=== PATIENT | male | born 1995 ===

== ENCOUNTER 2023-02-27 | Emergency (ER) | payer SELFPAY ==
[2023-02-27 00:05] VITALS: BP 153/85; PULSE 109; RESP 19; TEMP 36.9; O2SAT 100; BMI 27.0
[2023-02-27 01:45] VITALS: BP 113/68; PULSE 75; RESP 17; TEMP 37.1; O2SAT 97
--- NOTE | 2023-02-27 02:21 | ED_ITS ---
HPI - Skin/Abscess/Foreign Bdy General Chief complaint: Skin/Abscess/Foreign Body Stated complaint: Rash Time Seen by Provider: 02/27/23 02:16 Source: patient Mode of arrival: ambulatory Limitations: no limitations History of Present Illness HPI narrative: Patient comes to emergency room complaining of a very itchy circular rash in the inner thigh. Patient states that it has been there for couple of days. Patient states that he does not have any pain. However, it is very itchy. Patient does not recall if he got bitten by any insect. Related Data Previous Rx's Medication Instructions Recorded diphenhydramine HCl 2 % topical 1 appl topical QID PRN itching 02/27/23 gel (Benadryl) #103 mL hydrocortisone 2.5 % topical cream 1 appl topical TID PRN itching #30 02/27/23 grams Allergies Allergy/AdvReac Type Severity Reaction Status Date / Time No Known Allergies Allergy Verified 02/27/23 02:21 Review of Systems Review of Systems: Constitutional : No Weight loss, No Fever, No Chills, No Night Sweats, No Fatig ue, No Malaise ENT/Mouth : No Hearing loss, No Ear Pain, No Nasal Congestion, No Sinus Pain, No Hoarseness, No sore throat, No Rhinorrhea, No Swallowing Difficulty Eyes: No Eye Pain, No Swelling, No Redness, No Foreign Body, No Discharge, No Vision Changes Cardiovascular : No Chest Pain, No SOB, No Dyspnea on Exertion, No Orthopnea, No Edema, No Palpitations Respiratory : No Cough, No Sputum, No Wheezing, No Smoke Exposure, No Dyspnea Gastrointestinal : No Nausea, No Vomiting, No Diarrhea, No Constipation, No abdominal Pain, No Hematochezia, No Melena Genitourinary : no irregular bleeding, No Dysuria, No Urinary Frequency, No Hematuria, No Urinary Incontinence, No Urgency, No Flank Pain, No Urinary Flow Changes, No Hesitancy Musculoskeletal : No joint pain, No Myalgias, No Joint Swelling Skin : Very itchy circular rash Neuro : No Weakness, No Numbness, No Paresthesias, No Loss of Consciousness, No Dizziness, No Headache Psych : No Anxiety/Panic, No Depression, No SI/HI/AH/VH, No Social Issues, Heme/Lymph: No Bruising, No Bleeding,No Lymphadenopathy Endocrine : No Polyuria, No Polydipsia, No Temperature Intolerance PMFSH Social History Social History Alcohol intake: former Smoked in Last 30 Days: No Use of substances other than those prescribed or required for medical reasons: No Advance Directives: No Advance Directives Information Provided: Yes Physical Exam Vital Signs: Vital Signs: Last Vital Signs Temp 98.8 F 02/27/23 01:45 Pulse 75 02/27/23 01:45 Resp 17 02/27/23 01:45 BP 113/68 02/27/23 01:45 Pulse Ox 97 02/27/23 01:45 O2 Del Method Room Air 02/27/23 01:45 BMI result Body Mass Index 27.0 Const: Other: Appearance: Alert. Oriented X3. No acute distress. Eyes: Pupils equal, round and reactive to light. ENT: Pharynx normal. Neck: Normal inspection. Neck supple. No lymph nodes noted. No crepitus CVS: Normal heart rate and rhythm. Pulses normal. Normal S1 and S2 Respiratory: No respiratory distress. Breath sounds normal. No Wheezing. No rales Abdomen: Soft and nontender. No rigidity. No distention. Skin: Skin warm and dry. 10 cm x 10 cm circular rash, erythematous, no pain to palpation on to touch Extremities: No lower extremity edema. No Lacerations. No Rash Neuro: Oriented X 3. No motor deficit. No sensory deficit. Moving all extremities. No slurred speech. CN 2 through 12 grossly intact Psych: calm, cooperative, normal affect Medical Decision Making Medical Decision Making MDM Narrative: -janette discussed the physical exam with the patient, patient likely got bitten by an insect -this rash is not consistent with erythema migrans -this is not cellulitis either -patient was given p.o. Benadryl and a prescription for topical hydrocortisone Differential Diagnosis Differential Diagnoses: The differential diagnosis associated with the presentation includes (Insect bite, cellulitis, dermatitis) Discharge Plan Discharge Clinical Impression: Insect bite Patient Disposition: Home, Self-Care Instructions: Insect Bite or Sting (ED) Additional Instructions: Please follow-up with your primary care physician tomorrow. If you have any worsening or new symptoms, please return to the emergency room or call 911 Prescriptions: New hydrocortisone 2.5 % cream 1 appl topical TID PRN (Reason: itching) Qty: 30 0RF Benadryl 2 % gel 1 appl topical QID PRN (Reason: itching) Qty: 103 0RF
[2023-02-27] MEDS: diphenhydrAMINE HCL 25 MG CAPSULE 50 MG PO (02:59)
== END 2023-02-27 03:09 | disposition home or self-care (01) ==
PROVIDERS: Emergency Provider Emergency Medicine
DX: R21 Rash and other nonspecific skin eruption (principal)
CPT/HCPCS: 99283; 99284